=== PATIENT | female | born 1975 | race Caucasian/White ===

== ENCOUNTER 2020-10-17 11:12 | Emergency (ER) | payer MEDICAID ==
[~2020-10-17] VITALS: Ht 172.7 cm; Wt 95.0 kg
[2020-10-17 11:16] VITALS: BP 109/65
[2020-10-17] MEDS ORDERED: albuterol (11:16)
[2020-10-17] MEDS ORDERED: seroquel (11:16)
[2020-10-17] MEDS ORDERED: neurontin (11:16)
[2020-10-17] MEDS ORDERED: prozac (11:16)
== END 2020-10-17 14:37 | disposition home or self-care (01) ==
LOC: ER 11:12
DX: B34.9 Viral infection, unspecified (principal); F15.10 Other stimulant abuse, uncomplicated; F17.210 Nicotine dependence, cigarettes, uncomplicated; J45.909 Unspecified asthma, uncomplicated
CPT/HCPCS: 99283